=== PATIENT | male | born 1985 | race Caucasian/White ===

== ENCOUNTER 2024-04-18 00:32 | Emergency (ER) | payer BC ==
[~2024-04-18] VITALS: Ht 172.7 cm; Wt 68.0 kg
[2024-04-18] MEDS ORDERED: ACETAMINOPHEN 325 MG TABLET ONE (01:30)
[2024-04-18] MEDS: ACETAMINOPHEN 325 MG TABLET PO ONE (01:33)
[2024-04-18 03:49] VITALS: BP 136/79; TEMP 98.1; O2SAT 98
== END 2024-04-18 03:51 | disposition home or self-care (01) ==
LOC: ER 00:41
DX: S00.03XA Contusion of scalp, initial encounter (principal); J45.909 Unspecified asthma, uncomplicated; W10.8XXA Fall (on) (from) other stairs and steps, initial encounter; Y93.89 Activity, other specified; Y92.89 Other specified places as the place of occurrence of the external cause; Y99.8 Other external cause status
CPT/HCPCS: 70450-TC